=== PATIENT | female | born 2000 | race Caucasian/White ===

== ENCOUNTER → 2019-01-02 14:30 | Outpatient (CLI) | payer OTHER, SELFPAY ==
[2019-01-01 16:39] VITALS: BMI 31.1
--- NOTE | 2019-01-02 14:36 | RAD_ITS ---
STUDY: X-RAY - RIGHT SHOULDER REASON FOR EXAM: Female, 18 years old. Pain following injury. TECHNIQUE: 4 view(s) of the shoulder. COMPARISON: None. FINDINGS: Normal glenohumeral articulation. There is minimal widening of the AC joint suggesting a Type I acromioclavicular joint separation. Normal acromion. Normal humeral head and visualized proximal humerus. The soft tissue structures are unremarkable. Normal visualized pulmonary apex. RAD/Shoulder min 2 Views IMPRESSION: Type I right acromioclavicular joint subluxation. Electronically Signed: Clayton Hobbs, at 14:54 EDT , Service support ,
== END ==
PROVIDERS: Referring Provider Physician Assistant; Visit Provider Physician Assistant
DX: S40.021A Contusion of right upper arm, initial encounter (principal); S40.011A Contusion of right shoulder, initial encounter; X58.XXXA Exposure to other specified factors, initial encounter; Y93.9 Activity, unspecified; Y92.9 Unspecified place or not applicable; Y99.9 Unspecified external cause status
CPT/HCPCS: 73030

== ENCOUNTER 2019-01-05 23:50 | Emergency (ER) | payer BC, SELFPAY ==
[2019-01-05 15:26] VITALS: BMI 48.6
[2019-01-05 23:52] VITALS: BP 135/89; PULSE 109; RESP 18; TEMP 37.2; O2SAT 98; BMI 34.4
--- NOTE | 2019-01-05 23:53 | ED.RN ---
RN CALLED FOR EKG, NO OLD EKGS IN MUSE
--- NOTE | 2019-01-06 00:32 | CT_ITS ---
HISTORY: CHEST PAIN TECHNIQUE: Helically acquired images were obtained of the chest following the intravenous administration of 100 ml of Isovue 370 Iodinated contrast. as per pulmonary angiogram protocol with 2D MIP reconstructions. A radiation dose optimization technique was used for this scan. COMPARISON: None FINDINGS: # of images incl. paperwork: [id number] Lungs are clear but for trace basilar atelectasis. No effusions. Within the thoracic spinebony alignment is normal. Vertebral body height is normal. Facets are well aligned. No rib lesions are perceived. Heart is not enlarged. Thoracic aorta is normal. No aneurysms, stenoses, dissections, nor occlusions. No axillary or mediastinal adenopathy. No pulmonary emboli. Visualized portions of the upper abdomen are without identified acute pathology. CT/CTA Chest W/WO Contrast IMPRESSION: No pulmonary embolism, aortic aneurysm, or aortic dissection. Individualized dose optimization techniques were used for this CT. at 0222 Reported and signed by: Nicolas Hernández MD Electronically Signed: Nicolas Hernández MD at 2:21 EDT Tel , Service support ,
--- NOTE | 2019-01-06 00:34 | EKG12_ITS ---
Test Reason : CP Blood Pressure : / mmHG Vent. Rate : 097 BPM Atrial Rate : 097 BPM P-R Int : 144 ms QRS Dur : 076 ms QT Int : 340 ms P-R-T Axes : 044 070 041 degrees QTc Int : 431 ms Normal sinus rhythm Normal ECG Confirmed by JULIO MONTES, CHEYANNE ([id number]), editor at large MELLISA SUN ([id number]) on 01/07/2019 12:54:44 PM Referred By: Jose Vazquez Confirmed By:CHEYANNE KIM MD
--- NOTE | 2019-01-06 00:36 | ED.VIS.GEN ---
History of Present Illness Chief Complaint: Chest Pain Narrative: Patient is a 18-year-old female who presents with chest pain. This began acutely about 2 hours ago. She describes it as a constant dull pain but with periods of sharp pain. This is across the upper chest and she had radiation down the proximal arm on both sides. She also states it radiated into her neck and she felt short of breath. No nausea or diaphoresis. She been having similar less severe pain throughout the day. No history of prior similar symptoms. She recently had a right shoulder injury which she has been wearing a sling for but denies any other medical history. She did drive to [place] from [place] about 3 weeks ago. No recent illness such as fever cough. She denies medical history such as diabetes hypertension hyperlipidemia. No recent surgery no pain or swelling of the legs she is not on oral contraceptive. Past Medical History - Allergies and Home Meds Allergies/Adverse Reactions: Allergies No Known Allergies Allergy (Verified 01/05/19 15:25) Primary Care Physician: Care Physician,No Primary [Primary Care Provider] - Past Medical History: - - Denies Smoking Status: Never smoker Review of Systems All systems negative except as indicated General: Denies: Fever Cardiovascular: Reports: Chest pain Respiratory: Reports: Dyspnea. Denies: Cough Gastrointestinal: Denies: Vomiting Physical Exam Vital Signs/Narrative: Vital Signs Temp Pulse Resp BP Pulse Ox 01/05/19 23:52 98.9 F 109 H 18 135/89 H 98 Inital Vital Signs reviewed: Yes General: Well nourished Head: Normocephalic Eyes: EOMI ENT: Moist mucous membranes Neck: Supple Cardiovascular: - - Heart is regular tachycardia Respiratory: No distress, CTA bilaterally Abdomen: Soft, Nontender Extremities: Nontender, No edema Skin: Normal color Neurological: Alert Psychological: Normal affect Diagnostic/Tx/Re-eval Impressions Chest CTA 01/06/19 00:32 IMPRESSION: No pulmonary embolism, aortic aneurysm, or aortic dissection. Individualized dose optimization techniques were used for this CT. at 0222 Reported and signed by: Nicolas Hernández MD Electronically Signed: Nicolas Hernández MD at 2:21 EDT Tel , Service support , 01/06/19 00:32 CTA Chest W/WO Contrast [CT] Stat Laboratory Results 01/05/19 01/05/19 01/05/19 23:59 23:59 23:59 WBC 8.5 RBC 4.56 Hgb 12.4 Hct 36.0 L MCV 78.9 L MCH 27.2 MCHC 34.4 RDW Std Deviation 36.7 RDW Coeff of Noreen 13.0 Plt Count 274 MPV 9.5 Immature Gran % (Auto) 0.400 Neut % (Auto) 59.6 Lymph % (Auto) 30.8 [place] % (Auto) 6.9 Eos % (Auto) 2.2 Baso % (Auto) 0.1 Absolute Neuts (auto) 5.1 Absolute Lymphs (auto) 2.62 Nucleated RBC % 0 PT 12.4 INR 0.9 Sodium 140 Potassium 3.6 Chloride 111 H Carbon Dioxide 20.0 L Anion Gap 9 BUN 15 Creatinine 0.81 Estim Creat Clear Calc 108.63 Est GFR (MDRD) Af Amer 116 Est GFR (MDRD) Non-Af 96 BUN/Creatinine Ratio 18.4 Glucose 104 Calcium 9.0 Troponin I < 0.015 Urine Test 01/06/19 01:15 WBC RBC Hgb Hct MCV MCH MCHC RDW Std Deviation RDW Coeff of Noreen Plt Count MPV Immature Gran % (Auto) Neut % (Auto) Lymph % (Auto) [place] % (Auto) Eos % (Auto) Baso % (Auto) Absolute Neuts (auto) Absolute Lymphs (auto) Nucleated RBC % PT INR Sodium Potassium Chloride Carbon Dioxide Anion Gap BUN Creatinine Estim Creat Clear Calc Est GFR (MDRD) Af Amer Est GFR (MDRD) Non-Af BUN/Creatinine Ratio Glucose Calcium Troponin I Urine Test Negative - Medical Decision Making EKG shows normal sinus rhythm at a rate of 97 no acute ischemic changes. Patient's Wells criteria for pulmonary embolism is 4.5, in 2 tier model CTA is recommended. Laboratory studies returned unremarkable. CTA shows no pulmonary embolism aortic dissection or other acute pathology. Patient reassured, advised to follow-up as an outpatient, and understands to return for new or worsening symptoms. Patient discharged. ED Disposition - Plan for ED Patient: Disposition: Home or Assisted Living Diagnosis: Chest pain Instructions: CHEST PAIN, Uncertain Cause Referrals: Care Physician,No Primary [Primary Care Provider] -
[2019-01-06 00:46] LABS: Absolute Lymphocyte Count 2.62 X10^3/uL (0.83-4.51); Absolute Neutrophil Count 5.1 X10^3/uL (2.0-7.7); Basophil# 0.01 X10^3/uL; Basophil% 0.1 % (0-1); Eosinophil# 0.19 X10^3/uL; Eosinophils% 2.2 % (0-5); Hemoglobin 12.4 g/dL (12.0-15.0); Lymphocyte # 2.62 X10^3/ul (4.0); Lymphocyte % 30.8 % (19-41); Mean Corp Hgb Conc 34.4 g/dL (32-36); Mean Corpuscular Hgb 27.2 pg (27.0-32.0); Mean Corpuscular Volume 78.9 fL (81-99); Mean Platelet Vol. 9.5 fl (6.2-12.0); Monocyte# 0.59 X10^3/uL; Monocyte% 6.9 % (0-10); NRBC Flagged by Analyzer 0 % (0-5); Neutrophil # 5.06 X10^3/uL (2.7-7.7); Neutrophil % 59.6 % (47-70); Platelet Count 274 K/mm3 (150-450); RBC Distribution Width SD 36.7 fl (35.1-43.9); Red Blood Count 4.56 M/mm3 (4.2-5.4); White Blood Count 8.5 K/mm3 (4.4-11.0)
[2019-01-06 00:51] LABS: International Normalized Ratio 0.9; Prothrombin Time (Protime)PT. 12.4 SECONDS (11.7-14.9)
[2019-01-06 01:00] LABS: Anion Gap 9 (5-15); BUN 15 mg/dL (7-18); BUN/Creat Ratio 18.4 RATIO (10-20); Chloride 111 mmol/L (98-107); Creatinine, Serum 0.81 mg/dL (0.55-1.02); EST Glomerular Filtration Rate 96 mL/min (>60); Est Glom Filt Rate - Afr Amer 116 mL/min (>60); Estimated Creatinine Clearance 108.63 ml/min; Glucose 104 mg/dL (74-106); Potassium 3.6 mmol/L (3.5-5.1); Sodium Level 140 mmol/L (136-145)
[2019-01-06 01:25] LABS: Internal QC Validated? YES +Cl - CLEAR BKGD; Pregnancy, Urine Negative Negative
[2019-01-06 02:06] VITALS: PULSE 87; RESP 21; O2SAT 98
[2019-01-06 02:52] VITALS: BP 105/73; PULSE 96; RESP 16; O2SAT 98
== END 2019-01-06 02:52 | disposition home or self-care (01) ==
PROVIDERS: Emergency Provider Emergency Medicine
DX: R07.9 Chest pain, unspecified (principal); R06.02 Shortness of breath; R00.0 Tachycardia, unspecified; S49.91XA Unspecified injury of right shoulder and upper arm, initial encounter; X58.XXXA Exposure to other specified factors, initial encounter; Y93.9 Activity, unspecified; Y92.9 Unspecified place or not applicable; Y99.9 Unspecified external cause status
CPT/HCPCS: 71275; 80048; 81025; 84484; 85025; 85610; 93005; 99285; Q9967; A4216

== ENCOUNTER → 2019-01-08 07:20 | Outpatient (CLI) | payer OTHER, SELFPAY ==
[2019-01-01 16:39] VITALS: BMI 31.1
[2019-01-05 23:52] VITALS: BMI 34.4
--- NOTE | 2019-01-08 07:26 | MRI_ITS ---
STUDY: MRI RIGHT SHOULDER REASON FOR EXAM: Female, 18 years old. Shoulder pain TECHNIQUE: Standardized fat and water weighted pulse sequences were obtained in all 3 orthogonal planes. COMPARISON: X-ray 01/02/2019 FINDINGS: Normal supraspinatus tendon. Normal infraspinatus tendon. Normal subscapularis tendon. Normal teres minor tendon. Normal supraspinatus muscle. Normal infraspinatus muscle. Normal subscapularis muscle. Normal teres minor muscle. Normal glenohumeral articulation. Normal humeral head and visualized proximal humerus. Normal biceps labral complex. Normal intracapsular long biceps tendon. Normal labrum. Normal capsulo- ligamentous complex. Normal rotator interval. Normal acromioclavicular articulation. There is a Type II morphology (curved), with a anterior downsloping orientation. There is no subacromial-subdeltoid bursal fluid. Normal visualized coracohumeral and coracoacromial ligaments. Normal quadrilateral space. Normal axillary space. Normal deltoid muscle. Normal trapezius muscle. MRI/Upper Ext Joint Only(Routine) IMPRESSION: Normal MRI of the shoulder. Electronically Signed: Ortega Woods MD at 11:12 EDT Tel , Service support ,
== END ==
PROVIDERS: Referring Provider Physician Assistant; Visit Provider Physician Assistant
DX: S46.911A Strain of unspecified muscle, fascia and tendon at shoulder and upper arm level, right arm, initial encounter (principal); S40.021A Contusion of right upper arm, initial encounter; X58.XXXA Exposure to other specified factors, initial encounter; Y93.9 Activity, unspecified; Y92.9 Unspecified place or not applicable; Y99.9 Unspecified external cause status
CPT/HCPCS: 73221

== ENCOUNTER → 2021-04-03 10:52 | Outpatient (CLI) | payer BC, SELFPAY | PROVIDERS: Visit Provider Family Medicine | DX: Z23 Encounter for immunization (principal) ==